=== PATIENT | male | born 1980 | race Caucasian/White ===

== ENCOUNTER 2023-09-03 08:50 | Inpatient (IN) ==
--- NOTE | 2023-09-03 09:09 | Emergency Department Note ---
Impression & Plan Chest pain, NSTEMI (non-ST elevated myocardial infarction), Abdominal pain ED Provider Note NAME: AL ISAAC AGE: 42 SEX: M : 1980 ARRIVES VIA: Ambulance INFORMANT: Patient ED PROVIDER(S): Ronnie Peres DO CHIEF COMPLAINT: Chest pain/Abdominal pain HPI: Patient is a 42-year-old male who presents to the ER for pain in the epigastric/lower chest region which started around 5:30 in the morning. He notes he did have some shortness of breath and pain going up to his jaw. He was given aspirin 324 and nitro per EMS. They provided additional history. They noted with the nitro his pain went away. Denies any headache or change in vision. No dysuria urgency or frequency. No previous abdominal surgeries. He notes after it occurred he did not eat. No history of diabetes, hypertension, hyperlipidemia or CAD. No family history of heart disease. Notes no exertional symptoms while working. ADDITIONAL HISTORY OBTAINED: Additional history provided by significant other at bedside who notes that he does have a family history of A-fib in his mother Chronic Medical/Social Conditions Affecting Care: Per HPI PAST MEDICAL HISTORY:See Below PAST SURGICAL HISTORY:See Below FAMILY HISTORY:See Below SOCIAL HISTORY:See Below HOME MEDICATIONS:See Below ALLERGIES:See Below VITALS:See Below PHYSICAL EXAMINATION: GENERAL: Sitting up in bed, alert, well appearing, well nourished, no distress, non-toxic EYE EXAM: normal conjunctiva. PERRL and EOM's grossly intact. OROPHARYNX: no exudate, no erythema, lips, buccal mucosa, and tongue normal and mucous membranes are moist NECK: supple, no nuchal rigidity, no adenopathy, non-tender LUNGS: Clear to auscultation. Normal chest wall mechanics HEART: no murmurs, S1 normal and S2 normal ABDOMEN: abdomen soft, non-tender, normo-active bowel sounds, no masses, no rebound or guarding. UPPER EXTREMITIES: upper extremities are grossly normal. Radial pulses are equal bilaterally LOWER EXTREMITIES: No pitting edema. Calves are equal bilaterally NEURO EXAM: Normal sensorium, cranial nerves II-XII grossly intact, normal speech, no gross weakness of arms, no gross weakness of legs. MEDICAL DECISION MAKING: Patient is a 42-year-old male who presents ER for above-stated complaint. IV was established blood work was obtained. He received aspirin and nitro prior to arrival with resolution of his symptoms. Labs showed no significant leukocytosis. Mild anemia at 13. INR unremarkable. D-dimer negative. BMP along LFTs bilirubin was unremarkable. Troponin was elevated at 29. Lipase normal. Chest x-ray was clean. Initially upon presentation pain was in the epigastric region but with positive troponin we did add a dimer. This was negative and consequently PE was not pursued any further. Discussed with the hospitalist in regards to chest pain and positive troponin although normal EKG present. He was pain-free it did recur and was treated again with nitro and symptoms resolved. Hospitalist recommended holding on any additional imaging and they would bring him in and treat him for an NSTEMI at this time. Patient and were updated bedside Consults/Care Managements Discussions: Per [facility] Triage Nursing notes reviewed. Limited review of prior medical records performed Vital Signs: reviewed and remarkable for no significant abnormalities Differential diagnosis: Cardiac ischemia, aortic dissection, pulmonary embolism, pneumothorax, pneumonia, pericarditis, myocarditis, esophageal rupture, GERD, cholecystitis, pancreatitis, musculoskeletal, as well as other pathologies. ER treatment provided: See below Diagnostics interpreted by me include EKG and cardiac monitoring as listed below: -Cardiac Monitoring: An order was placed for continuous cardiac monitoring. The monitor shows a rate of 60 with sinus rhythm. -ECG: Sinus rhythm rate 60 Normal axis No PVCs QTc 426 -Laboratory studies:Interpreted by me as stated above in MDM and shown below. Imaging studies: Xrays: As interpreted by me: Portable AP upright 1 view the chest shows no focal infiltrate CTs show: none Procedures:none Critical Care: None Past Med/Surg History Problem List (Updated 09/03/23 @ 13:15 by Ronnie Peres DO) Abdominal pain (Acute) NSTEMI (non-ST elevated myocardial infarction) (Acute) Chest pain (Acute) Social History Smoking Status: Never smoker Preferred Language: Polish Feels Safe at Home: Yes Allergies Allergies Allergy/AdvReac Type Severity Reaction Status Date / Time No Known Drug Allergies Allergy . Unverified 09/03/23 09:57 [id number] Allergy Unknown . Uncoded 09/03/23 09:57 N Allergy Unknown . Uncoded 09/03/23 09:57 Home Meds Home Medications Medication Instructions Recorded Confirmed multivitamin 1 tab PO DAILY 09/03/23 09/03/23 Results & Data (ED) Vital Signs Vital Signs - 24 hr 09/03/23 08:56 09/03/23 08:56 09/03/23 09:31 Temperature 36.9 C Temperature Source Oral Pulse Rate 56 L 59 L Pulse Rate [Apical] 56 L Respiratory Rate 24 18 Respiratory Effort / Characteristics Non-Labored Spontaneous Non-Labored Respiratory Depth Normal Normal Respiratory Pattern Regular Blood Pressure 155/101 H Blood Pressure [Right Arm] 123/82 Blood Pressure Mean 119 Blood Pressure Mean [Right Arm] 95 Blood Pressure Position Lying Blood Pressure Position [Right Arm] Semi-fowlers Pulse Oximetry 94 95 Oxygen Delivery Method Room Air Room Air Sepsis Recent Fever Within 48 Hours No Sepsis New/Unexplained Change in Mental Status No Sepsis Action Taken by Nursing No Action Required 09/03/23 09:31 09/03/23 10:15 Temperature Temperature Source Pulse Rate 59 L Pulse Rate [Apical] 71 Respiratory Rate 16 20 Respiratory Effort / Characteristics Non-Labored Spontaneous Respiratory Depth Normal Respiratory Pattern Regular Blood Pressure Blood Pressure [Right Arm] 124/82 Blood Pressure Mean Blood Pressure Mean [Right Arm] 96 Blood Pressure Position Blood Pressure Position [Right Arm] Semi-fowlers Pulse Oximetry 95 94 Oxygen Delivery Method Room Air Room Air Sepsis Recent Fever Within 48 Hours Sepsis New/Unexplained Change in Mental Status Sepsis Action Taken by Nursing Laboratory Data 09/03/23 08:58 09/03/23 08:58 Lab Results 09/03/23 Range/Units 08:58 WBC 6.04 (4.8-10.8) K/ul RBC 4.60 L (4.70-6.10) M/uL Hgb 13.5 L (14.0-18.0) g/dl Hct 40.5 L (42.0-52.0) % MCV 88.0 (80.0-100.0) fL MCH 29.3 (25.0-34.0) pg MCHC 33.3 (32.0-36.0) g/dL RDW Std Deviation 42.7 (36.4-46.3) fL RDW Coeff of [place] 13.3 (11.5-14.5) % Plt Count 255 (130-400) K/uL MPV 9.1 L (9.4-12.4) fL Immature Gran % (Auto) 0.3 % Neut % (Auto) 57.5 % Lymph % (Auto) 29.3 % [place] % (Auto) 10.3 % Eos % (Auto) 1.8 % Baso % (Auto) 0.8 % Neut # (Auto) 3.47 (1.40-6.50) K/uL Lymph # (Auto) 1.77 (1.20-3.40) K/uL [place] # (Auto) 0.62 H (0.11-0.59) K/uL Eos # (Auto) 0.11 (0.00-0.50) K/uL Baso # (Auto) 0.05 (0.00-0.20) K/uL Immature Gran # (Auto) 0.02 (0.01-0.20) K/uL D-Dimer 230 (0-500) ug/L FEU Sodium 138 (136-145) mmol/L Potassium 4.2 (3.5-5.1) mmol/L Chloride 105 (98-107) mmol/L Carbon Dioxide 27 (21-32) mmol/L Anion Gap 6 (3-11) BUN 18 (6-23) mg/dl Creatinine 0.75 (0.6-1.4) mg/dl Est Cr Clr Drug Dosing 163.8 ml/min Est GFR ( Amer) 132.1 ml/min Est GFR (Non-Af Amer) 113.9 ml/min BUN/Creatinine Ratio 24.0 H (10-20) Glucose 110 H (70-99(Fasting)) mg/dl Calcium 9.1 (8.6-10.3) mg/dl Total Bilirubin 0.4 (0.2-1.0) mg/dl AST 32 (13-39) U/L ALT 31 (7-52) U/L Alkaline Phosphatase 68 (34-104) U/L Troponin I High Sens 29.6 H (0-20) pg/ml Total Protein 7.0 (6.0-8.3) gm/dl Albumin 4.2 (3.4-5.0) gm/dl Globulin 2.8 (2.5-4.0) gm/dl Albumin/Globulin Ratio 1.5 (0.9-2) Lipase 6 L (11-82) U/L Administered Medications Discontinued Medications Heparin Sodium (Porcine) (Heparin Sod (Porcine) 1000 Unit/Ml) 4,000 units IV NOW ONE Stop: 09/03/23 11:04 Last Admin: 09/03/23 11:44 Dose: 4,000 units Documented By: SIENNA Co-signed By: DEBORAH Heparin Sodium/Dextrose (Heparin Sodium/Dextrose) 25,000 units in 500 mls @ 20 mls/hr IV .Q24H ABBEY; Protocol Stop: 10/03/23 11:14 Last Titration: 09/03/23 12:09 Dose: 0 units/hr, 0 mls/hr Documented By: SIENNA Co-signed By: DEBORAH Admin: 09/03/23 11:45 Dose: 1,000 units/hr, 20 mls/hr Documented By: SIENNA Co-signed By: DEBORAH Ioversol (Optiray 320 125ml) 119 ml IV ONCE ONE Stop: 09/03/23 12:43 Last Admin: 09/03/23 12:42 Dose: 119 ml Documented By: JENNIFER Morphine Sulfate (Morphine Sulfate 4 Mg/Ml 1 Ml Carp\Vial) 4 mg IV NOW STA Stop: 09/03/23 09:56 Last Admin: 09/03/23 10:18 Dose: 4 mg Documented By: SIENNA Nitroglycerin (Nitroglycerin Sl 0.4 Mg/Tab Tab) 0.4 mg SL NOW STA Stop: 09/03/23 09:56 Last Admin: 09/03/23 09:59 Dose: 0.4 mg Documented By: SIENNA Nitroglycerin (Nitroglycerin 2% Ointment 30gm Tube) 1 inch EXT NOW STA Stop: 09/03/23 10:46 Last Admin: 09/03/23 11:32 Dose: 1 inch Documented By: DEBORAH Imaging Data Radiologist's Impression: Chest X-Ray 09/03/23 09:05 SINGLE VIEW CHEST CLINICAL HISTORY: Atypical chest pain. FINDINGS: An AP, portable, upright chest radiograph is obtained. No prior studies are available for comparison at the time of dictation. The cardiomediastinal silhouette is unremarkable. There are low lung volumes with mild dependent atelectasis. The lungs and pleural spaces are otherwise clear. No pneumothorax is seen. The bony thorax is grossly intact. IMPRESSION: No acute cardiopulmonary abnormality is identified. ACT 112: Negative or not required by law. Electronically signed by: Zacarias Cardozo M.D. 09/03/2023 9:33 AM Discharge Plan Visit Data Chief Complaint: Chest Pain Stated Complaint: CHEST PAIN ED Provider: Ronnie Peres Discharge Problem: Chest pain, NSTEMI (non-ST elevated myocardial infarction), Abdominal pain Patient Disposition: Admitted As Inpatient Discharge Instructions Interventions: ED Discharge Assessment Last Done: 09/03/23 12:50 Discharge Problem: Chest pain Qualifiers: Chest pain type: unspecified Qualified Code(s): R07.9 - Chest pain, unspecified Abdominal pain Qualifiers: Abdominal location: unspecified location Qualified Code(s): R10.9 - Unspecified abdominal pain
[2023-09-03 09:24] LABS: Basophils # (auto) 0.05 K/uL (0.00-0.20); Basophils % (auto) 0.8 %; Eosinophils # (auto) 0.11 K/uL (0.00-0.50); Eosinophils % (auto) 1.8 %; Hematocrit (blood only) 40.5 % (42.0-52.0); Hemoglobin 13.5 g/dl (14.0-18.0); Immature Granulocytes # (auto) 0.02 K/uL (0.01-0.20); Immature Granulocytes % (auto) 0.3 %; Lymphocytes # (auto) 1.77 K/uL (1.20-3.40); Lymphocytes % (auto) 29.3 %; Mean Corpuscular Hemoglobin 29.3 pg (25.0-34.0); Mean Corpuscular Hgb Conc 33.3 g/dL (32.0-36.0); Mean Platelet Volume 9.1 fL (9.4-12.4); Monocytes # (auto) 0.62 K/uL (0.11-0.59); Monocytes % (auto) 10.3 %; Neutrophils # (auto) 3.47 K/uL (1.40-6.50); Neutrophils % (auto) 57.5 %; Platelet Count 255 K/uL (130-400); RDW Coefficient of Variation 13.3 % (11.5-14.5); RDW Standard Deviation 42.7 fL (36.4-46.3); White Blood Count 6.04 K/ul (4.8-10.8)
--- NOTE | 2023-09-03 09:34 | XRay Report ---
SINGLE VIEW CHEST CLINICAL HISTORY: Atypical chest pain. FINDINGS: An AP, portable, upright chest radiograph is obtained. No prior studies are available for c omparison at the time of dictation. The cardiomediastinal silhouette is unremarkable. There are low l silver volumes with mild dependent atelectasis. The lungs and pleural spaces are otherwise clear. No pne umothorax is seen. The bony thorax is grossly intact. IMPRESSION: No acute cardiopulmonary abnormality is identified. ACT 112: Negative or not required by law. Electronically signed by: Zacarias Cardozo M.D. 09/03/2023 9:33 AM
[2023-09-03 09:40] LABS: Albumin Globulin Ratio 1.5 (0.9-2); Albumin Level 4.2 gm/dl (3.4-5.0); Bilirubin,Total 0.4 mg/dl (0.2-1.0); Calcium 9.1 mg/dl (8.6-10.3); Creatinine Clr Calc Pharmacy 163.8 ml/min; Est GFR (African American) 132.1 ml/min; Est GFR (Non-African American) 113.9 ml/min; Globulin 2.8 gm/dl (2.5-4.0); Potassium 4.2 mmol/L (3.5-5.1)
[2023-09-03 09:46] LABS: Troponin I High Sensitivity 29.6 pg/ml (0-20)
[2023-09-03] MEDS: NITROGLYCERIN SL 0.4 MG/TAB TAB SL STA (09:59)
--- NOTE | 2023-09-03 10:13 | History & Physical Report ---
Date of Service September 03, 2023 Assessment & Plan (1) Chest pain: Plan: Acute onset of chest/epigastric pain, and pleuritic CP, with radiation to the neck bilaterally upon waking on 09/02 No prior cardiac hx, MS, or risk factors (such as HTN, HLD, DM) Despite taking ASA 324, nitro x 3 en route, and receiving Nitro-Bid/morphine in the ED, patient still endorsed chest pain 8/10 at time of admission Initial dx of NSTEMI D-dimer negative Chest CTA revealed no aortic dissection Troponin elevated at 29--> 29 on arrival; trend q6h x 2 ECG revealed NSR around 60 bpm Echocardiogram revealed LVEF at 55-60% and top normal RVSP Heparin IV low-dose with bolus was initially started in ED; however, this was stopped after normal echocardiogram results and repeat troponin not uptrending despite continued chest pain Etiology unclear; DDx at this time includes: GERD, costochondritis, viral respiratory illness, occupational exposure, pericarditis, and unstable angina (among other etiologies) Aspirin 81 mg daily Protonix 40 mg p.o. daily Supplemental oxygen as needed to maintain SpO2 >94% Consider adding high-dose statin pending a.m. fasting lipid panel Continuous telemetry monitoring A.m. CBC, BMP, fasting lipid panel, A1c, mag (2) NSTEMI (non-ST elevated myocardial infarction): Plan Disposition: Admit to PCU telemetry Full code AHA diet VTE PPx: Heparin IV low-dose with bolus stopped; low DVT risk; encourage ambulation as tolerated History of Present Illness Chief Complaint: Chest pain Primary Care Provider: NO PCP Shiva is a 42-year-old male without significant PMH. He presented via EMS on 09/02 after waking up around 0530 with chest/epigastric pain that radiated to his neck bilaterally. Patient reports that the pain has been constant since. He describes it as a sharp, stabbing pain. Radiation to both sides of his neck. No radiation to the back or down the arms. He has had prior experiences like this morning, but never to this degree; he is unsure of the frequency of these experiences, but reports it occurs a couple times a year. Patient rates the pain 8/10 at present, as well as this morning; the only time it was alleviated with with nitro in the ambulance (dropped it to 2/10). Pain is pleuritic; exacerbated with deep breaths. Pain is not reproducible on palpation. While he says it is not positional, he does note it is worse when he leans forward. He does not take medications on a daily basis. Patient took aspirin 325 mg x 2 without relief. No PMH of MS, CVA, HTN, DM, HLD, GERD, DVT/PE, bleeding disorders, or GI bleeds to his knowledge. 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 No recent changes in diet. No sick contacts. Patient denies smoking, tobacco use, and alcohol use. He denies family history of cardiac disease, MS, or stroke. No sudden cardiac deaths in family members <55yo. Patient's vitals are stable at time of admission. ED course: Nitroglycerin 0.4 mg SL Morphine 4 mg IV ROS: Patient endorses headache, chest pain with radiation to the neck bilaterally, chest palpitations upon waking, SOB at rest (which patient believes is secondary to the pain), pleuritic CP, and mild abdominal pain. Patient denies fever, chills, night sweats, dizziness, lightheadedness, rashes, pain or pressure in the left shoulder or arm shoulders/arms, back pain, cough, N/V/D, changes in urinary or bowel habits, blood in the urine or stool, burning with urination, or numbness or tingling in arms or legs. Allergies Allergy/AdvReac Type Severity Reaction Status Date / Time No Known Drug Allergies Allergy . Unverified 09/03/23 09:57 [id number] Allergy Unknown . Uncoded 09/03/23 09:57 N Allergy Unknown . Uncoded 09/03/23 09:57 Home Medications Medication Instructions Recorded Confirmed Type multivitamin 1 tab PO DAILY 09/03/23 09/03/23 History Past Med/Surg History Problem List (Updated 09/03/23 @ 15:26 by Marky Golden PA-C) NSTEMI (non-ST elevated myocardial infarction) Abdominal pain (Acute) Chest pain (Acute) Social History Smoking Status: Never smoker Hx Alcohol Use: No Hx Substance Use: No Preferred Language: [place] Communication Ability: Effective Account Solutions Analyst Required: No Beliefs That Will Affect Care: None Current Living Situation: Spouse Feels Safe at Home: Yes Safety Concerns: Feels Safe At This Time Assistive Devices: None Review of Systems Review of Systems: See HPI above Physical Exam Physical Exam: General: Physical distress/discomfort secondary to chest pain; anxious; non- toxic appearing; well-nourished; cooperative; SpO2 94% on RA HEENT: normocephalic, atraumatic; no scleral icterus; PERRLA; moist mucus membrane; vision and hearing grossly intact Neck: supple; no lymphadenopathy; trachea midline Skin: warm, dry without signs of tenting; no cyanosis; no rashes, bruising, lesions, or erythema noted CV: chest wall NTP; pain is not reproducible with palpation and active ROM; RRR; S1/S2 normal; no murmurs/rubs/gallops; pulses intact and symmetric at radial, DP, and PT Lungs: no acute respiratory distress; symmetrical chest wall expansion; clear breath sounds across all lung singh w/o adventitious sounds; no wheezing ABD: Soft, NTP; BS present; no rebound/guarding; no distention Back: Spine NTP MSK: no tics or fasciculations; no edema noted in the LEs b/l, nonerythematous Neuro: A&Ox3; normal mood and affect; fluent speech; no focal deficits; sensation intact in the LEs b/l Results & Data Results & Data Vital Signs (Past 12 Hours) Vital Signs Temp Pulse Pulse Resp BP BP Pulse Ox 09/03/23 09:31 59 L 16 95 09/03/23 09:31 56 L 18 123/82 95 09/03/23 08:56 36.9 C 59 L 24 155/101 H 94 09/03/23 08:56 56 L O2 Del Method 09/03/23 09:31 Room Air 09/03/23 09:31 Room Air 09/03/23 08:56 Room Air 09/03/23 08:56 Laboratory Results Abnormal lab results 09/03/23 Range/Units 08:58 RBC 4.60 L (4.70-6.10) M/uL Hgb 13.5 L (14.0-18.0) g/dl Hct 40.5 L (42.0-52.0) % MPV 9.1 L (9.4-12.4) fL [place] # (Auto) 0.62 H (0.11-0.59) K/uL BUN/Creatinine Ratio 24.0 H (10-20) Glucose 110 H (70-99(Fasting)) mg/dl Troponin I High Sens 29.6 H (0-20) pg/ml Lipase 6 L (11-82) U/L Diagnostic Findings Chest X-Ray 09/03/23 09:05 SINGLE VIEW CHEST CLINICAL HISTORY: Atypical chest pain. FINDINGS: An AP, portable, upright chest radiograph is obtained. No prior studies are available for comparison at the time of dictation. The cardiomediastinal silhouette is unremarkable. There are low lung volumes with mild dependent atelectasis. The lungs and pleural spaces are otherwise clear. No pneumothorax is seen. The bony thorax is grossly intact. IMPRESSION: No acute cardiopulmonary abnormality is identified. ACT 112: Negative or not required by law. Electronically signed by: Zacarias Cardozo M.D. 09/03/2023 9:33 AM ECG Additional Comments: ECG revealed NSR at 66 bpm; QTc 440 Code Status & VTE Plan Code Status Full code VTE Prophylaxis Plan VTE Prophylaxis will be ordered: Yes Supervising Physician Co-Signing Physician Notes I personally saw and examined the patient. I independently reviewed the labs, EKG, imaging, problem list, medication list, past medical history and family history. I verified all sosa points and agree with Marky Golden PA-C with the following exceptions and/or additions: 42 year old male presents to the ER with 8/10 chest pain on waking up this morn ing around 5:30am. Worse on inspiration, unable to take deep breaths. Not exertional. No smoking, diabetes or prior cardiac issues. Helped with nitroglycerin pre-hospital but pain appears to be severe and ongoing. O/E HS RRR, no murmurs, Chest CTAB, pain no reproducible on exam, Abdo SNT, no pedal edema A/P Chest pain / NSTEMI - initially suspected but ongoing pain with lack of change in troponin or regional wall motion abnormalities ruled out. CT angio negative for dissection. D-dimer negative. CRP/ESR added. Toradol 15mg IV. PG Care Time/CCT Total # of Minutes Spent Total Time Spent with Patient: Total time spent is greater than 50% in coordination of care (as documented) at patient's floor/unit and/or counseling patient: [place] [address] INT INP/OBS CARE 3/75MIN Patient Type New Medical Decision Making High Complexity Diagnoses Chest pain R07.9 Chest pain type: unspecified NSTEMI (non-ST elevated myocardial infarction) I21.4 (1) Chest pain Chest pain type: unspecified Qualified Code(s): R07.9 - Chest pain, unspecified
[2023-09-03] MEDS: MoRPHine SULFATE 4 MG/ML 1 ML CARP\\VIAL IV STA (10:18)
[2023-09-03 10:20] LABS: D Dimer 230 ug/L FEU (0-500)
[2023-09-03] MEDS ORDERED: Heparin IV Adult Wt-Based Low-Dose w/ INITIAL Bolus Protocol IV SCH (10:53)
[2023-09-03] MEDS: NITROGLYCERIN 2% OINTMENT 30GM TUBE EXT STA (11:32)
[2023-09-03] MEDS: HEPARIN SOD (PORCINE) 1000 UNIT/ML IV ONE (11:44)
[2023-09-03] MEDS: HEPARIN SODIUM/DEXTROSE 25,000 UNITS/500 ML BAG IV SCH (11:45)
[2023-09-03 12:09] LABS: Partial Thromboplastin Time 26 Seconds (21-31); Prothrombin Time 10.5 Seconds (9.0-12.0)
[2023-09-03] MEDS: OPTIRAY 320 125ml IV ONE (12:42)
[2023-09-03] MEDS ORDERED: NITROGLYCERIN SL 0.4 MG/TAB TAB SL PRN (12:48)
[2023-09-03] MEDS ORDERED: ONDANSETRON INJ 2 MG/ML 2 ML VIAL IV PRN (12:48)
--- NOTE | 2023-09-03 13:01 | CT Scan Report ---
CHEST CTA for AORTIC DISSECTION CT DOSE: 1740.49 mGy.cm HISTORY: Chest/epigastric pain TECHNIQUE: Multiaxial CT images of the chest were performed both before and after the intravenous adm inistration of contrast to evaluate the aorta. 3D/MIP images were also obtained. Sagittal and coronal reformations were also reviewed. A dose lowering technique was utilized adhering to the principles of ALARA. COMPARISON STUDY: None. FINDINGS: Noncontrast imaging through the chest shows no evidence for an intramural maternal within t he thoracic aorta. The thoracic aorta is normal in course and caliber with no evidence for dissection . The heart is normal in size. No pleural or pericardial effusions. The central pulmonary arteries ar e patent. Limited views of the upper abdomen demonstrate a normal liver, spleen, and adrenal glands. Partially visualized left renal cysts are noted. Normal esophagus. Normal thyroid gland. No mediastin al or hilar lymphadenopathy. There is a calcified left hilar lymph node. No acute fractures within th e chest. The central airways are patent. No pneumothorax. Bibasilar linear densities favor subsegment al atelectasis. Otherwise, no focal lung consolidations to suggest a pneumonia. No evidence for pulmo nary edema. There is a calcified granuloma within the superior segment of the left lower lobe. There is also a punctate calcified granuloma within the right lower lobe. IMPRESSION: No evidence for an aortic dissection. ACT 112: Negative or not required by law. Electronically signed by: Marky Hardy M.D. 09/03/2023 12:59 PM
[2023-09-03] MEDS: FAMOTIDINE 20MG IV PUSH 20 MG/5 ML SYR IV STA (13:32)
[2023-09-03] MEDS: ALUMINUM/MAGNESIUM SUSP 30 ML UDC PO STA (13:32)
--- NOTE | 2023-09-03 13:57 | XCELERA ---
[id number] [id number]
[2023-09-03] MEDS: PANTOprazole 40 MG in SYRINGE 0 ML IV ONE (15:05)
[2023-09-03] MEDS: ACETAMINOPHEN 325 MG TAB PO PRN (16:09)
[2023-09-03] MEDS: KETOROLAC TROMETHAMINE 15 MG/ML VIAL IV ONE (16:30)
[2023-09-03] MEDS: KETOROLAC TROMETHAMINE 15 MG/ML VIAL ONE (16:30)
[2023-09-03 17:19] LABS: C Reactive Protein 1.74 mg/dl (0-0.5)
[2023-09-03 18:53] LABS: Appearance Urine Clear (Clear); Bilirubin Urine Negative (Negative); Blood Urine Negative (Negative); Color Urine Yellow; Glucose Urine UA Negative (Negative); Ketones Urine Negative (Negative); Leukocyte Esterase Urine Negative (Negative); Nitrite Urine Negative (Negative); Protein Urine Negative (Negative); Specific Gravity Urine > 1.045 (1.000-1.030); Urobilinogen Urine Negative (Negative)
[2023-09-03] MEDS: KETOROLAC TROMETHAMINE 15 MG/ML VIAL IV PRN (22:00)
--- NOTE | 2023-09-03 22:41 | Communication Note ---
Date of Service: September 03, 2023 Initially suspected to have NSTEMI however with stable troponins, severe constant/pleuritic pain throughout the day and normal echocardiogram NSTEMI ruled out; heparin IV drip discontinued. Subsequent CT angio for dissection was negative dissection but notably did show calcified hilar lymph nodes and granulomas. Maalox, famotidine and pantoprazole made minimal difference to his pain. Patient was reviewed in PCU around 4:20pm. Appeared diaphoretic, taking shallow breaths due to pain, pleuritic, minimally positional (better on sitting up) severity 8/10, non-reproducible on exam - generally appeared much worse than when I initially saw him in the ER. CRP/ESR added to assess for pericarditis. Toradol 15mg IV given with substantial improvement severity down to 2/10 and patient appeared significantly better when reviewed again around 9:30pm. Suspect diagnosis either pleurisy vs. pericarditis given improvement with Toradol and workup/clinical course as above. Utilize additional Toradol as needed overnight with pulmonology and cardiology evaluations tomorrow. Repeat EKG in AM.
[2023-09-04 08:20] LABS: Basophils # (auto) 0.03 K/uL (0.00-0.20); Basophils % (auto) 0.4 %; Eosinophils # (auto) 0.08 K/uL (0.00-0.50); Eosinophils % (auto) 1.1 %; Hematocrit (blood only) 39.8 % (42.0-52.0); Hemoglobin 13.4 g/dl (14.0-18.0); Immature Granulocytes # (auto) 0.02 K/uL (0.01-0.20); Immature Granulocytes % (auto) 0.3 %; Lymphocytes # (auto) 1.65 K/uL (1.20-3.40); Lymphocytes % (auto) 23.5 %; Mean Corpuscular Hemoglobin 29.3 pg (25.0-34.0); Mean Corpuscular Hgb Conc 33.7 g/dL (32.0-36.0); Mean Corpuscular Volume 87.1 fL (80.0-100.0); Mean Platelet Volume 8.8 fL (9.4-12.4); Monocytes # (auto) 0.89 K/uL (0.11-0.59); Monocytes % (auto) 12.7 %; Neutrophils # (auto) 4.36 K/uL (1.40-6.50); Platelet Count 240 K/uL (130-400); RDW Coefficient of Variation 13.8 % (11.5-14.5); RDW Standard Deviation 43.6 fL (36.4-46.3); Red Blood Count 4.57 M/uL (4.70-6.10); White Blood Count 7.03 K/ul (4.8-10.8)
[2023-09-04 08:39] LABS: Estimated Average Glucose 123 mg/dl; Hemoglobin A1C 5.9 % (4.5-5.6)
[2023-09-04 08:43] LABS: BUN Creatinine Ratio 23.1 (10-20); Calcium 8.8 mg/dl (8.6-10.3); Creatinine Clr Calc Pharmacy 157.5 ml/min; Est GFR (African American) 129.9 ml/min; Est GFR (Non-African American) 112.1 ml/min; Magnesium 2.2 mg/dl (1.7-2.4)
[2023-09-04] MEDS ORDERED: ASPIRIN 81 MG ECTAB PO SCH (09:00)
[2023-09-04] MEDS ORDERED: PANTOprazole 40 MG TAB PO SCH (09:00)
--- NOTE | 2023-09-04 10:56 | Pulmonary Consultation ---
Date of Consultation September 04, 2023 Assessment & Plan (1) Pleuritic chest pain: (2) Pulmonary nodule: (3) Chest pain: Chest pain type: unspecified Qualified Code(s): R07.9 - Chest pain, unspecified Plan IMPRESSION: 42-year-old male with no significant past medical history who presents with central chest discomfort with pleuritic component and findings of calcified granulomas on chest CT. Pulmonary consulted for input. RECOMMENDATIONS: 1. Pleuritic chest discomfort - On review of patient's chest CT, findings are not suspicious for any underlying pulmonary pathology that could be contributing to his degree of discomfort. Responded well to Toradol. EKG findings reviewed. Question if he could be experiencing pericarditis versus myocarditis given his degree of pain on proportion of other findings, elevated troponin, and lack of other exam findings. Will order procalcitonin and CPK. ESR unremarkable. CRP mildly elevated. Procalcitonin negative. 2. Pulmonary nodules - Calcified granulomas appreciated on CT. These certainly do not appear to be acute or suspicious at this time. Certainly, this could represent a prior infectious process. Without hilar adenopathy or other concerning findings, doubt these findings to be related to sarcoidosis, and particular not active sarcoid at this point. 3. Chest pain - Again, defer to primary service and cardiology team for their evaluation of his ongoing discomfort. Thank you for allowing us to participate in the care of this pleasant patient. Supervising Physician Co-Signing Physician Notes I saw and evaluated the patient with Reagan Valdez PA-C, and agree with findings and plan as documented in the note. 42-year-old male with no significant past medical history presented to the hospital with complaints of chest pain radiating to the left neck Pulmonary positive for abnormal chest CT. Patient's was in the room at the time of examination At the time of examination patient was having active chest pain radiating to the left neck as well as retrosternal. He was diaphoretic. I ordered a stat EKG which did not show any ST elevation but there was some [place] depressions appreciated. Chest pain is also pleuritic in nature. Gets worse when he is taking a deep breath in. Denies any fever or chills. No night sweats, no unintentional weight loss No unusual headache or blurry vision. Does have history of tick bites in the past. Social history: Used to smoke as a teenager. Chews tobacco on a regular basis No history of asthma History of lung cancer in father was a smoker Constitutional: In distress secondary to pain HEENT: EOMI, PERRLA Respiratory system: Decreased air entry bilaterally, no wheeze, no rhonchi, no crackles CVS: S1-S2 positive, no murmurs or gallops Abdomen: Soft, nontender, nondistended, positive bowel sounds x4 Extremities: +2 pulses bilaterally radialis/ dorsalis pedis, no cyanosis, no edema Neuro: Awake alert oriented x3 Psych: Normal mood and affect G/U: No Holt Plan: CTA chest 09/03/2023 personally reviewed: Calcified granuloma left lower lobe Dependent atelectasis bilateral lower lobes No significant mediastinal lymphadenopathy, calcified left hilar lymph node Looking at the signing of symptoms, patient's primary etiology of chest pain is likely coming from cardiac. Pericarditis high in the differential Continue with NSAIDs. Addition of colchicine can also be thought of. But I will defer the management to cardiology. From pulmonary perspective no intervention. Has all granulomatous disease No indication to think about sarcoidosis. Procalcitonin negative No personal or family history of autoimmune disease like lupus, sarcoid, Sjogren's, rheumatoid. Pulmonary will continue to follow Case was discussed with RN Please note the above document was generated using voice recognition software. It may contain grammatical, syntax or spelling errors.Any formal questions or concerns about the content, text or information contained within the body of this dictation should be directly addressed to the provider for clarification. History of Present Illness Reason for Consultation: Pleuritic chest pain, calcified granuloma ?sarcoid Requesting Physician: Dr. Villeda Attending Physician: Raoul Palma MD History of Present Illness Patient is a 42-year-old male with no pertinent past medical history who presented to the emergency department yesterday with an acute onset of central chest pain which was worse with deep inspiration. He does not describe positional chest discomfort, but states that it "certainly does not help." He had difficulty with breathing secondary to inability to take a deep breath. No cough or recent upper respiratory infections. He states that his children may have had colds, but nothing abnormal. He reports no rash or recent tick or insect bites that he is aware of. No personal history of cardiac disease or family history of such. He does report a history of breast cancer in his father. The patient works as a construction plant operator and constructs windows. No other occupational exposures. He gardens, but does not farm. He reports no prior pulmonary infections. He lives in the [facility] area. No exposures to exotic birds, plants, fish, turtles, etc. No history of connective tissue diseases or rheumatologic disorders otherwise. Allergies Allergy/AdvReac Type Severity Reaction Status Date / Time No Known Drug Allergies Allergy . Unverified 09/03/23 09:57 [id number] Allergy Unknown . Uncoded 09/03/23 09:57 N Allergy Unknown . Uncoded 09/03/23 09:57 Home Medications Medication Instructions Recorded Confirmed Type multivitamin 1 tab PO DAILY 09/03/23 09/03/23 History Patient History Social History Smoking Status: Never smoker Hx Alcohol Use: No Hx Substance Use: No Preferred Language: Spanish Communication Ability: Effective Customer Service Attendant Required: No Beliefs That Will Affect Care: None Current Living Situation: Spouse Feels Safe at Home: Yes Safety Concerns: Feels Safe At This Time Assistive Devices: None Review of Systems 2 Review of Systems: A complete 10 point review of systems was reviewed with the patient with pertinent positives and negatives as per history of present illness. All else were negative. Physical Exam 2 Physical Exam: VITAL SIGNS - Vital signs and nursing notes were reviewed. GENERAL - 42-year-old male appearing his stated age who is in no acute distress. Communicates well with provider and answers questions appropriately. SKIN - Without rashes or lesions. NOSE - Midline and without cyanosis. MOUTH/OROPHARYNX - Without perioral cyanosis. NECK - Neck with FROM. LUNGS - Chest wall evaluation demonstrates normal chest wall A:P diameter. Auscultation reveals clear breath sounds bilaterally without wheezes, rales, or rhonchi appreciated. CARDIAC - RRR with S1/S2. No murmur, rubs, or gallops appreciated. ABDOMEN - Abdominal inspection demonstrates flat. BS normoactive all four quadrants. No tenderness, palpable masses, or ascites noted. EXTREMITIES - Nail clubbing not present. No peripheral cyanosis. Mild pretibial edema present. +3/5 radial palpated throughout. PSYCH - A&Ox3 and cooperates fully with examiner. Pt is very pleasant and interacts well with examiner. Results & Data Results & Data Vital Signs (Past 12 Hours) Vital Signs Temp Pulse Pulse Resp BP Pulse Ox O2 Del Method 06/05/24 08:11 37.0 C 74 17 118/75 92 Room Air 09/04/23 02:46 36.6 C 60 18 130/84 92 Room Air 09/03/23 23:41 67 09/03/23 23:18 36.8 C 63 18 113/74 91 Room Air Laboratory Results 09/04/23 07:53 09/04/23 07:53 PG Care Time/CCT Total # of Minutes Spent Total Time Spent with Patient: Total time spent is greater than 50% in coordination of care (as documented) at patient's floor/unit and/or counseling patient: Coding Level of Care Code 87262 INT INP/OBS CARE 375MIN Diagnoses Pleuritic chest pain R07.81 Pulmonary nodule R91.1 Chest pain R07.9 Chest pain type: unspecified
--- NOTE | 2023-09-04 12:28 | Cardiology Consultation ---
Date of Consultation September 04, 2023 Assessment & Plan (1) Acute myopericarditis: Plan ASSESSMENT/PLAN: 1. Acute myopericarditis: Diagnosis discussed with patient and his . High- sensitivity troponin only slightly elevated, CRP elevated and friction rub noted. Symptoms have improved with anti-inflammatory medication. Recommend aspirin 325 mg p.o. twice daily for 1 week and then twice daily on an as-needed basis only. Colchicine 0.6 mg p.o. twice daily x 3 months to reduce the rate of recurrence. Avoid strenuous activity. Recommend close follow-up in the cardiology office. Etiology uncertain. Could consider autoimmune workup in the outpatient setting, especially if recurrence. 2. Disposition: He and his would like to be discharged soon. Okay to discharge from a cardiology perspective if no new developments. He requests to be seen in the [facility] cardiology office. His specifically requests Dr. Driver, who manages his mother's cardiac care. Appointment is scheduled for 09/20/2023 at 12:[address] Driver in the [place] office. Patient care communicated with Dr. Palma of the primary hospitalist service. Thank you for allowing me to participate in the care of your patient. Please call for any other questions or concerns. Sincerely, Ronald Arce M.D. History of Present Illness Reason for Consultation: Pericarditis Requesting Physician: Dr. Villeda Attending Physician: Raoul Palma MD History of Present Illness Mr. Mcdaniels is a very pleasant 42-year-old gentleman with no known prior medical history who was admitted on 09/03/2023 with chest pain. Chest pain was noted when he woke up in the morning on 09/03/2023. It is a substernal along the right sternal border pleuritic pain. It is worse when lying supine and better when sitting upright. It resolves or nearly resolves upon exhalation. He has had this once or twice in the past few years he believes but nothing this significant. While here, pain significantly improved with Toradol. His pain is down to 1 out of 10 when he was seen earlier this afternoon. He denies any shortness of breath, syncope, near syncope, palpitations, edema, melena, hematochezia, hematuria, or other bleeding. He has not had any recent illness or ill contacts that he is aware of. He is active but does not participate in dedicated exercise. He and his both inquired about going home today. Review of systems: As above. Review of systems otherwise negative/unremarkable. Family history: Mother has atrial fibrillation and hypertension. Social history: Smoked intermittently many years ago. No alcohol or drug abuse. Lives at home with his and 7 children. 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 His was present at the bedside. Allergies Allergy/AdvReac Type Severity Reaction Status Date / Time No Known Drug Allergies Allergy . Unverified 09/03/23 09:57 [id number] Allergy Unknown . Uncoded 09/03/23 09:57 N Allergy Unknown . Uncoded 09/03/23 09:57 Home Medications Medication Instructions Recorded Confirmed Type multivitamin 1 tab PO DAILY 09/03/23 09/03/23 History aspirin 81 mg chewable tablet 324 mg (4 x 81 mg) PO BID 1 week 09/04/23 Rx #90 tabs colchicine 0.6 mg tablet (Colcrys) 0.6 mg PO BID 1 month #60 tabs 09/04/23 Rx Patient History Social History Smoking Status: Never smoker Hx Alcohol Use: No Hx Substance Use: No Preferred Language: Tongan Communication Ability: Effective Director Of Global Marketing Required: No Beliefs That Will Affect Care: None Current Living Situation: Spouse Feels Safe at Home: Yes Assistive Devices: None Physical Exam Physical Exam: Gen.: No acute distress. Alert and oriented. HEENT: Anicteric sclera. Neck: No JVD. No bruits. Normal carotid upstrokes bilaterally. Cardiac: No ventricular heave. Regular. Normal S1-S2. Friction rub auscultated. 1/6 systolic murmur. Pulmonary: Clear to auscultation bilaterally without wheezes, rales, or rhonchi. Abdomen: Soft, nontender, nondistended, with normoactive bowel sounds. No bruits noted. Extremities: 2+ radial pulses bilaterally. 2+ posterior tibialis pulses bilaterally. Trace bilateral lower extremity edema. No cyanosis. Psychiatric: Affect appears appropriate. Chest: Nontender to palpation. Results & Data Vital Signs (Past 12 Hours) Vital Signs Temp Pulse Pulse Resp BP Pulse Ox O2 Del Method 09/04/23 11:57 36.9 C 64 18 110/68 92 Room Air 09/04/23 11:25 73 09/04/23 08:11 37.0 C 74 17 118/75 92 Room Air 09/04/23 02:46 36.6 C 60 18 130/84 92 Room Air Laboratory Results Laboratory Results - last 24 hr 09/03/23 09/03/23 09/03/23 16:36 22:51 Unknown WBC RBC Hgb Hct MCV MCH MCHC RDW Std Deviation RDW Coeff of Gordon Plt Count MPV Immature Gran % (Auto) Neut % (Auto) Lymph % (Auto) [place] % (Auto) Eos % (Auto) Baso % (Auto) Neut # (Auto) Lymph # (Auto) [place] # (Auto) Eos # (Auto) Baso # (Auto) Immature Gran # (Auto) ESR 12 Sodium Potassium Chloride Carbon Dioxide Anion Gap BUN Creatinine Est Cr Clr Drug Dosing Est GFR ( Amer) Est GFR (Non-Af Amer) BUN/Creatinine Ratio Glucose Estimat Average Glucose Hemoglobin A1c Calcium Magnesium Total Creatine Kinase Troponin I High Sens 27.0 H 24.7 H C-Reactive Protein 1.74 H Procalcitonin Urine Color Yellow Urine Appearance Clear Urine pH 5.0 Ur Specific [place] > 1.045 H Urine Protein Negative Urine Glucose (UA) Negative Urine Ketones Negative Urine Blood Negative Urine Nitrite Negative Urine Bilirubin Negative Urine Urobilinogen Negative Ur Leukocyte Esterase Negative 09/04/23 09/04/23 07:53 08:45 WBC 7.03 RBC 4.57 L Hgb 13.4 L Hct 39.8 L MCV 87.1 MCH 29.3 MCHC 33.7 RDW Std Deviation 43.6 RDW Coeff of Gordon 13.8 Plt Count 240 MPV 8.8 L Immature Gran % (Auto) 0.3 Neut % (Auto) 62.0 Lymph % (Auto) 23.5 [place] % (Auto) 12.7 Eos % (Auto) 1.1 Baso % (Auto) 0.4 Neut # (Auto) 4.36 Lymph # (Auto) 1.65 [place] # (Auto) 0.89 H Eos # (Auto) 0.08 Baso # (Auto) 0.03 Immature Gran # (Auto) 0.02 ESR Sodium 138 Potassium 4.0 Chloride 104 Carbon Dioxide 26 Anion Gap 8 BUN 18 Creatinine 0.78 Est Cr Clr Drug Dosing 157.5 Est GFR ( Amer) 129.9 Est GFR (Non-Af Amer) 112.1 BUN/Creatinine Ratio 23.1 H Glucose 115 H Estimat Average Glucose 123 Hemoglobin A1c 5.9 H Calcium 8.8 Magnesium 2.2 Total Creatine Kinase 211 Troponin I High Sens C-Reactive Protein Procalcitonin 0.06 Urine Color Urine Appearance Urine pH Ur Specific [place] Urine Protein Urine Glucose (UA) Urine Ketones Urine Blood Urine Nitrite Urine Bilirubin Urine Urobilinogen Ur Leukocyte Esterase Diagnostic Findings ECGs personally reviewed: ECG 09/03/2023 at 8:54 AM: Sinus rhythm 60 bpm. ECG 09/03/2023 at 10:03 AM: NSR 66 bpm. ECG 09/03/2023 at 1559: NSR 63 bpm. ECG 09/04/2023 at 6:10 AM: NSR 68 bpm. ECG 09/04/2023 8:58 AM: NSR [address] mild diffuse [address] elevation. Labs reviewed and notable for minimally elevated high-sensitivity troponin, peak of 29 on presentation. Normal renal function, normal potassium, normal transaminase levels, slight anemia. D-dimer normal. ESR normal. Procalcitonin normal. CTA chest 09/03/2023: No aortic dissection per radiology. Central pulmonary arteries patent per radiology. Calcified left hilar lymph node. Calcified gran uloma left and right lower lobes. History and physical report reviewed. Pulmonary consultation report reviewed. Telemetry personally reviewed: Sinus rhythm. No arrhythmia. Echo 09/03/2023: Top normal LV size. EF 55 to 60%. No regional wall motion abnormalities. Moderate concentric LVH. Mild RV dilation with normal systolic function. Mild MR. RVSP 37. Medications Administered Current Inpatient Medications Acetaminophen (Acetaminophen 325 Mg Tab) 650 mg PO Q4H PRN PRN Reason: Pain or Fever Stop: 10/03/23 12:47 Last Admin: 09/04/23 07:50 Dose: 650 mg Aspirin (Aspirin Chew 324 Mg) 324 mg PO BID [facility] Stop: 10/04/23 14:19 Colchicine (Colchicine 0.6 Mg Tab) 0.6 mg PO BID [facility] Stop: 10/04/23 14:24 Ketorolac Tromethamine (Ketorolac Tromethamine 15 Mg/Ml Vial) 15 mg IV Q6H PRN PRN Reason: Pain Stop: 09/08/23 21:30 Last Admin: 09/04/23 09:02 Dose: 15 mg Ondansetron HCl (Ondansetron Inj 2 Mg/Ml 2 Ml Vial) 4 mg IV Q6H PRN PRN Reason: Nausea Stop: 10/03/23 12:47 PG Care Time/CCT Total # of Minutes Spent Total Time Spent with Patient: Total time spent is greater than 50% in coordination of care (as documented) at patient's floor/unit and/or counseling patient: Coding Level of Care Code 10836 INT INP/OBS CARE 3/75MIN Diagnoses Acute myopericarditis I30.9
--- NOTE | 2023-09-04 14:44 | Discharge Summary ---
Date of Service September 04, 2023 Admission HPI Per Admitting Provider Shiva is a 42-year-old male without significant PMH. He presented via EMS on 09/02 after waking up around 0530 with chest/epigastric pain that radiated to his neck bilaterally. Patient reports that the pain has been constant since. He describes it as a sharp, stabbing pain. Radiation to both sides of his neck. No radiation to the back or down the arms. He has had prior experiences like this morning, but never to this degree; he is unsure of the frequency of these experiences, but reports it occurs a couple times a year. Patient rates the pain 8/10 at present, as well as this morning; the only time it was alleviated with with nitro in the ambulance (dropped it to 2/10). Pain is pleuritic; exacerbated with deep breaths. Pain is not reproducible on palpation. While he says it is not positional, he does note it is worse when he leans forward. He does not take medications on a daily basis. Patient took aspirin 325 mg x 2 without relief. No PMH of FL, CVA, HTN, DM, HLD, GERD, DVT/PE, bleeding disorde rs, or GI bleeds to his knowledge. 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 No recent changes in diet. No sick contacts. Patient denies smoking, tobacco use, and alcohol use. He denies family history of cardiac disease, FL, or stroke. No sudden cardiac deaths in family members <55yo. Patient's vitals are stable at time of admission. ED course: Nitroglycerin 0.4 mg SL Morphine 4 mg IV ROS: Patient endorses headache, chest pain with radiation to the neck bilaterally, chest palpitations upon waking, SOB at rest (which patient believes is secondary to the pain), pleuritic CP, and mild abdominal pain. Patient denies fever, chills, night sweats, dizziness, lightheadedness, rashes, pain or pressure in the left shoulder or arm shoulders/arms, back pain, cough, N/V/D, changes in urinary or bowel habits, blood in the urine or stool, burning with urination, or numbness or tingling in arms or legs. Admission Exam Per Admitting Provider General: Physical distress/discomfort secondary to chest pain; anxious; non- toxic appearing; well-nourished; cooperative; SpO2 94% on RA HEENT: normocephalic, atraumatic; no scleral icterus; PERRLA; moist mucus membrane; vision and hearing grossly intact Neck: supple; no lymphadenopathy; trachea midline Skin: warm, dry without signs of tenting; no cyanosis; no rashes, bruising, lesions, or erythema noted CV: chest wall NTP; pain is not reproducible with palpation and active ROM; RRR; S1/S2 normal; no murmurs/rubs/gallops; pulses intact and symmetric at radial, DP, and PT Lungs: no acute respiratory distress; symmetrical chest wall expansion; clear breath sounds across all lung singh w/o adventitious sounds; no wheezing ABD: Soft, NTP; BS present; no rebound/guarding; no distention Back: Spine NTP MSK: no tics or fasciculations; no edema noted in the LEs b/l, nonerythematous Neuro: A&Ox3; normal mood and affect; fluent speech; no focal deficits; sensation intact in the LEs b/l Principal Diagnosis Acute myopericarditis Discharge Exam General: Awake, conversant Heart: S1, S2/regular rate and rhythm, no murmur rubs or gallops Lungs: Clear to auscultation bilaterally. Normal effort Abdomen: Soft/nontender/nondistended. No hepatosplenomegaly Extremities: No clubbing/cyanosis. No edema Behavior: Appropriate, cooperative Discharge Data Allergies Allergy/AdvReac Type Severity Reaction Status Date / Time No Known Drug Allergies Allergy . Unverified 09/03/23 09:57 [id number] Allergy Unknown . Uncoded 09/03/23 09:57 N Allergy Unknown . Uncoded 09/03/23 09:57 Consultations 09/03/23 10:54 ED Decision to Admit Stat 09/03/23 21:50 Consult Cardiology Routine 09/03/23 22:45 Consult Pulmonology Routine Ordered Studies 09/03/23 12:10 CT angio chest dissec wo/w con Stat Hospital Course (1) Chest pain: Initially the patient presented with chest pain and the initial diagnosis was non-ST elevation FL. CTA of the chest showed no PE, no aortic dissection. Patient was admitted with a working diagnosis of non-ST elevation FL. However he had stable troponins. He had severe constant pleuritic pain with normal echocardiogram. Patient was treated with IV Toradol with remarkable response. Pericarditis/pleuritis was thought to be the likely etiology. Pulmonology and cardiology were consulted. Cardiology agreed that the patient had a pericardial rub and this is most likely myopericarditis. The patient was started on aspirin 325 mg p.o. twice daily for 7 days scheduled followed by as needed after that. He is also been started on colchicine to be continued for 3 months. He is going to see cardiology outpatient. A PCP appointment has also been made for him. The patient is chest pain-free and would like to go home. Cleared for discharge by cardiology (2) NSTEMI (non-ST elevated myocardial infarction): (3) Acute myopericarditis: Please see problem #1 Plan Discharged Total Time Total Time Spent Total Time Spent (In Minutes): 35 Discharge Plan Discharge Items Patient Disposition: Home - Self-Care Reason For Visit: CHEST PAIN Discharge Diagnosis: Myopericarditis Activity: As commented below Activity Comment: Avoid strenuous activity but walking is okay to do. Non-emergency contact: Primary Care Provider Call non-emergency contact if: you have any medication questions and your symptoms worsen Follow-up/Referrals: Hiro Driver MD [Physician] - 09/20/23 12:30 pm (at the [facility] office. ) PCPRAKESH [Primary Care Provider] - 09/09/23 1:00 pm (With Luly Rao- at the [facility] Office- Will need to schedule Establish Care visit. ) Diet: Regular Addtl Attending Provider Instructions: Advised to follow-up with PCP in 1 week Advised to follow-up with cardiology in 2 weeks Advised to note that you have inflammation of the covering of the heart. You will be treated with some anti-inflammatory agents. You will need to be seen by a gas pumping station helper. Pending Studies at Discharge: Rakesh Stand-Alone Forms: My [facility] Medications and DC Order Prescriptions: New aspirin 81 mg Tablet,Chewable 324 mg PO BID 7 Days Qty: 90 0RF Rx Instructions: Take aspirin 325 mg p.o. twice daily scheduled for 1 week then as needed with food colchicine [Colcrys] 0.6 mg Tablet 0.6 mg PO BID 30 Days Qty: 60 0RF Continued multivitamin Tablet 1 tab PO DAILY Discharge Orders: Discharge Order (Routine); Ordered 09/04/23 Ordered By: Raoul Palma Admission Data Admit Date/Time: 09/03/23 10:57 Attending Provider: Raoul Palma Admit Provider: Murtaza Villeda Primary Care Provider: PCP,NO Other Providers: Murtaza Villeda; Jef Arce; Tio Lewis Coding Level of Care Code 15194 INP/OBS DISCH >30 MIN Diagnoses Chest pain R07.9 Chest pain type: unspecified NSTEMI (non-ST elevated myocardial infarction) I21.4 Acute myopericarditis I30.9
[2023-09-04] MEDS: ASPIRIN CHEW 324 MG PO SCH (14:46)
[2023-09-04] MEDS: COLCHICINE 0.6 MG TAB PO SCH (14:46)
--- NOTE | 2023-09-04 22:49 | Electrocardiogram Report ---
Test Reason : Blood Pressure : / mmHG Vent. Rate : 060 BPM Atrial Rate : 060 BPM P-R Int : 136 ms QRS Dur : 096 ms QT Int : 426 ms P-R-T Axes : 027 003 030 degrees QTc Int : 426 ms Normal sinus rhythm Normal ECG When compared with ECG of 17-AUG-2015 17:56, No significant change was found Confirmed by Jef Arce ([id number]) on 09/04/2023 10:48:58 PM Referred By: Confirmed By:Jef Arce
--- NOTE | 2023-09-04 22:49 | Electrocardiogram Report ---
Test Reason : Blood Pressure : / mmHG Vent. Rate : 066 BPM Atrial Rate : 066 BPM P-R Int : 136 ms QRS Dur : 096 ms QT Int : 420 ms P-R-T Axes : 023 001 027 degrees QTc Int : 440 ms Normal sinus rhythm Normal ECG When compared with ECG of 03-SEP-2023 08:54, No significant change was found Confirmed by Jef Arce ([id number]) on 09/04/2023 10:49:08 PM Referred By: REFERRED SELF Confirmed By:Jef Arce
--- NOTE | 2023-09-04 22:49 | Electrocardiogram Report ---
Test Reason : Blood Pressure : / mmHG Vent. Rate : 063 BPM Atrial Rate : 063 BPM P-R Int : 140 ms QRS Dur : 100 ms QT Int : 416 ms P-R-T Axes : 021 004 027 degrees QTc Int : 425 ms Normal sinus rhythm Normal ECG When compared with ECG of 03-SEP-2023 10:03, No significant change was found Confirmed by Jef Arce ([id number]) on 09/04/2023 10:49:23 PM Referred By: REFERRED SELF Confirmed By:Jef Arce
--- NOTE | 2023-09-04 22:53 | Electrocardiogram Report ---
Test Reason : Blood Pressure : / mmHG Vent. Rate : 068 BPM Atrial Rate : 068 BPM P-R Int : 140 ms QRS Dur : 106 ms QT Int : 412 ms P-R-T Axes : 028 -02 016 degrees QTc Int : 438 ms Normal sinus rhythm Minimal voltage criteria for LVH, may be normal variant Diffuse mild ST elevation, consider pericarditis When compared with ECG of 03-SEP-2023 15:59, No significant change was found Confirmed by Jef Arce ([id number]) on 09/04/2023 10:53:21 PM Referred By: REFERRED SELF Confirmed By:Jef Arce
--- NOTE | 2023-09-04 22:54 | Electrocardiogram Report ---
Test Reason : Blood Pressure : / mmHG Vent. Rate : 077 BPM Atrial Rate : 077 BPM P-R Int : 144 ms QRS Dur : 104 ms QT Int : 396 ms P-R-T Axes : 030 000 013 degrees QTc Int : 448 ms Normal sinus rhythm Minimal voltage criteria for LVH, may be normal variant Diffuse ST elevation, consider pericarditis Abnormal ECG When compared with ECG of 04-SEP-2023 06:10, No significant change was found Confirmed by Jef Arce ([id number]) on 09/04/2023 10:54:02 PM Referred By: REFERRED SELF Confirmed By:Jef Arce
== END 2023-09-04 17:21 | disposition home or self-care (01) | DRG 316 ==
LOC: ED 08:50 → EDINP 10:57 → SUATTDRO 10:57 → 2E 12:50 → 2S 20:56